=== PATIENT | female | born 1975 | race Caucasian/White ===

== ENCOUNTER 2017-12-21 23:40 | Emergency (ER) | payer BC ==
[~2017-12-21] VITALS: Ht 160 cm; Wt 91.8 kg
[~2017-12-21 23:40] MED LIST: CYCLOBENZAPRINE10 MG PO; LORAZEPAM1 MG PO; MORPHINE SULFAT30 M5; MORPHINE SULFAT30 M5 PO; OXYCODONE-ACET1 EACH PO; RANITIDINE HCL150 MG PO; SEROQUEL50 MG PO; TEMAZEPAM30 MG PO; TOPIRAMATE25 MG PO; TRI-SPRINTEC1 EACH PO
[2017-12-22 00:08] LABS: HEMATOCRIT 40.7 % (36.0-46.0); HEMOGLOBIN 13.9 G/DL (11.9-15.5); MCH 30.5 PG (29.0-34.0); MCHC 34.2 G/DL (30.0-36.0); MCV 89.3 FL (83-99); PLATELET COUNT 265 K/uL (156-360); RBC DIS.WIDTH-CV 12.7 % (11.8-14.6); RBC DIS.WIDTH-SD 41.7 % (39-53); RED BLOOD COUNT 4.56 M/uL (3.80-5.20); WHITE BLOOD COUNT 12.4 K/uL (4.1-10.2)
[2017-12-22 00:21] LABS: ALBUMIN 4.2 g/dL (3.2-4.8)
[2017-12-22 00:22] LABS: CHLORIDE 111 mEq/L (99-109); POTASSIUM 4.1 mEq/L (3.7-5.4); SODIUM 139 mEq/L (136-147)
[2017-12-22 00:24] LABS: GLUCOSE 142 mg/dL (70-99); TOTAL PROTEIN 7.3 g/dL (6.4-8.3)
[2017-12-22 00:26] LABS: TOTAL BILIRUBIN 0.3 mg/dL (0.0-1.0)
[2017-12-22 00:27] LABS: ALKALINE PHOSPHATASE 90 IU/L (3-129)
[2017-12-22 00:28] LABS: CREATININE 0.9 mg/dL (0.6-1.3); GFR ESTIMATE (CALCULATED) > 59 mL/min/
[2017-12-22 00:29] LABS: AST (GOT) 16 IU/L (2-34); UREA NITROGEN (BUN) 12 mg/dL (9-23)
[2017-12-22 00:31] LABS: ALT (GPT) 17 IU/L (3-49); LIPASE 46 U/L (1.0-51.0)
[2017-12-22 00:38] LABS: QUANTITATIVE HCG < 4.0 MIU/ML
[2017-12-22 03:24] LABS: APPEARANCE CLEAR ((CLEAR)); BILIRUBIN NEGATIVE; BLOOD NEGATIVE; COLOR YELLOW ((YELLOW)); GLUCOSE (STRIP) NEGATIVE; KETONES 5; LEUKOCYTES NEGATIVE; NITRITE NEGATIVE; PROTEIN (STRIP) NEGATIVE; SPECIFIC GRAVITY 1.034 (1.000-1.030); UCUL ADDED? NO; UROBILINOGEN 0.2 MG/DL (0.2-1.0)
[2017-12-22] MEDS ORDERED: ZOFRAN4 MG PO (04:08)
[2017-12-22] MEDS ORDERED: PERCOCET 5/31 TABLET PO (04:08)
[2017-12-22 04:32] VITALS: BP 107/78
== END 2017-12-22 04:38 | disposition home or self-care (01) ==
LOC: EME 23:40
DX: R10.31 Right lower quadrant pain (principal); N83.8 Other noninflammatory disorders of ovary, fallopian tube and broad ligament; F31.9 Bipolar disorder, unspecified; G43.909 Migraine, unspecified, not intractable, without status migrainosus; F41.9 Anxiety disorder, unspecified; Z90.49 Acquired absence of other specified parts of digestive tract
CPT/HCPCS: 74177; 76856; 80053; 81003; 83690; 84702; 85027; 99281; 99285; J2270; J2405; J7030

== ENCOUNTER → 2018-03-03 | Outpatient (CLI) | payer BC ==
[~2018-03-03] MED LIST changes: +PERCOCET 5/31 TABLET PO; +ZOFRAN4 MG PO
== END | disposition home or self-care (01) ==
LOC: NUC 07:00
DX: R14.0 Abdominal distension (gaseous) (principal); R68.81 Early satiety; K21.9 Gastro-esophageal reflux disease without esophagitis; R19.4 Change in bowel habit; K29.30 Chronic superficial gastritis without bleeding
CPT/HCPCS: 78264; A9541